=== PATIENT | male | born 1965 | race Hispanic/Latino ===

== ENCOUNTER 2018-02-02 06:00 | Day surgery (SDC) | payer MEDICARE ==
[2018-02-02] MEDS ORDERED: SODIUM CHLORIDE 0.9% 1000ML 1,000 ML IV ONE (06:34)
[2018-02-02] MEDS ORDERED: IOPAMIDOL-370 100 ML VIAL IV ONE (11:30)
[2018-02-02] MEDS ORDERED: IOPAMIDOL-370 75 ML VIAL IV ONE (11:30)
[2018-02-02 12:00] VITALS: BP 176/81
== END 2018-02-02 13:00 | disposition home or self-care (01) ==
LOC: DAH 06:00 → RAH 06:15 → EDSTATUS 08:00 → DAH 13:00 → RAH 13:00
PROVIDERS: ATTEND Internal Medicine Cardiovascular Disease
DX: I70.293 Other atherosclerosis of native arteries of extremities, bilateral legs (principal); I10 Essential (primary) hypertension; E78.4 Other hyperlipidemia; E11.9 Type 2 diabetes mellitus without complications; I51.7 Cardiomegaly
CPT/HCPCS: 75635; J7030; Q9967 ×2

== ENCOUNTER 2019-08-22 16:28 | Inpatient (IN) | payer MEDICARE ==
[~2019-08-22] VITALS: Ht 175.3 cm; Wt 108.0 kg
[2019-08-22 17:18] LABS: BASOPHILS % (AUTO) 0.6 % (0.0-5.0); EOSINOPHILS % (AUTO) 2.7 % (0.0-8.0); HEMATOCRIT 29.7 % (42-54); LYMPHOCYTES % (AUTO) 18.9 % (21.0-51.0); MEAN CORPUSCULAR HEMOGLOBIN 31.5 pg (27.0-33.0); MEAN CORPUSCULAR VOLUME 90.1 fL (79-99); MONOCYTES % (AUTO) 10.4 % (3.0-13.0); NEUTROPHILS % (AUTO) 67.4 % (40.0-77.0); PLATELET COUNT (AUTO) 192 K/uL (130-400); RED CELL DISTRIBUTION WIDTH 13.6 % (11.0-15.5); WHITE BLOOD COUNT (AUTO) 7.1 K/uL (4.8-10.8)
[2019-08-22 17:30] LABS: CREATININE 2.1 mg/dL (0.5-1.5); POTASSIUM 4.5 mmol/L (3.5-5.1)
[2019-08-22 17:35] LABS: ALBUMIN 2.9 g/dL (3.5-5.0); BILIRUBIN,TOTAL 0.3 mg/dL (0.2-1.0)
[2019-08-22 17:38] LABS: B-TYPE NATRIURETIC PEPTIDE 336 pg/mL (0-100)
[2019-08-22 17:51] VITALS: BP 203/99
[2019-08-22] MEDS ORDERED: ROSU40 PO (18:03)
[2019-08-22] MEDS ORDERED: CLIN300C9 PO (18:03)
[2019-08-22] MEDS ORDERED: FURO40TA5 PO (18:03)
[2019-08-22] MEDS ORDERED: METO-391 PO (18:03)
[2019-08-22] MEDS ORDERED: INSREG SQ (18:03)
[2019-08-22] MEDS ORDERED: INSU300I SQ (18:03)
[2019-08-22 19:00] VITALS: BP 150/78
[2019-08-22] MEDS ORDERED: HYDRALAZINE HCL 20 MG/ML VIAL IV PRN (19:00)
[2019-08-22] MEDS ORDERED: LACTULOSE 20 GM/30 ML UDCUP PO PRN (19:15)
[2019-08-22] MEDS ORDERED: IPRATROPIUM/ALBUTEROL SULFATE 3 ML SOLUTION IH PRN (19:15)
[2019-08-22] MEDS ORDERED: ACETAMINOPHEN 325 MG TAB PO PRN ×2 (19:15)
[2019-08-22] MEDS ORDERED: ONDANSETRON HCL 4 MG/2 ML VIAL IV PRN (19:15)
[2019-08-22] MEDS ORDERED: DIPHENHYDRAMINE HCL 25 MG CAPSULE PO PRN (19:45)
[2019-08-22] MEDS ORDERED: GUAIFENESIN-DM 200/20 MG 10 ML PO PRN (19:45)
[2019-08-22] MEDS ORDERED: MAG HYDROX/AL HYDROX/SIMETH ES 30 ML SUSP UDCUP PO PRN (19:45)
[2019-08-22] MEDS ORDERED: SODIUM CHLORIDE 0.9% 10 ML VIAL IVP SCH (19:45)
[2019-08-22 20:25] LABS: INR 1.02 (0.85-1.15); PARTIAL THROMBOPLASTIN TIME 27.1 SEC (26.3-35.5); PROTHROMBIN TIME 10.7 SEC (9.6-11.6)
[2019-08-22] MEDS: SPIRONOLACTONE 25 MG TAB PO SCH (20:30)
[2019-08-22] MEDS: ATORVASTATIN CALCIUM 40 MG TABLET PO SCH (20:30)
[2019-08-22] MEDS: FUROSEMIDE 10 MG/ML 4ML VIAL IVP SCH (20:30)
[2019-08-22] MEDS: METOPROLOL TARTRATE 25 MG TAB PO SCH (20:30)
[2019-08-22] MEDS: INSULIN HUMULIN R 100 UNIT/ML 3ML SQ SCH (21:00)
[2019-08-22 23:00] VITALS: BP 141/64
[2019-08-23 03:00] VITALS: BP 145/77
[2019-08-23 04:01] LABS: BASOPHILS % (AUTO) 0.4 % (0.0-5.0); EOSINOPHILS % (AUTO) 2.4 % (0.0-8.0); HEMATOCRIT 26.1 % (42-54); LYMPHOCYTES % (AUTO) 26.8 % (21.0-51.0); MEAN CORPUSCULAR HEMOGLOBIN 31.3 pg (27.0-33.0); MEAN CORPUSCULAR HGB CONC 35.1 g/dL (32.0-36.0); MEAN CORPUSCULAR VOLUME 89.3 fL (79-99); MONOCYTES % (AUTO) 13.5 % (3.0-13.0); NEUTROPHILS % (AUTO) 56.9 % (40.0-77.0); PLATELET COUNT (AUTO) 177 K/uL (130-400); RED BLOOD CELL COUNT(AUTO) 2.93 MIL/uL (4.50-6.20); RED CELL DISTRIBUTION WIDTH 13.5 % (11.0-15.5); WHITE BLOOD COUNT (AUTO) 6.5 K/uL (4.8-10.8)
[2019-08-23 04:12] LABS: CREATININE 2.2 mg/dL (0.5-1.5)
[2019-08-23] MEDS: INSULIN HUMULIN R 100 UNIT/ML 3ML SQ SCH ×4 (05:58→22:43)
[2019-08-23] MEDS: FUROSEMIDE 10 MG/ML 4ML VIAL IVP SCH ×2 (05:58→12:10)
--- NOTE | 2019-08-23 06:33 | NUR ---
Patient a/ox4. Denies chest pain. SOB with exertion. Cannot lie flat. On RA. 3+ pitting edema to BLE. Educated on fluid restriction.
[2019-08-23 08:00] VITALS: BP 154/72
[2019-08-23] MEDS: FAMOTIDINE 20MG TAB 20 MG TAB PO SCH (08:43)
[2019-08-23] MEDS: SPIRONOLACTONE 25 MG TAB PO SCH ×2 (08:43→20:42)
[2019-08-23] MEDS: METOPROLOL TARTRATE 25 MG TAB PO SCH ×2 (08:43→20:42)
[2019-08-23] MEDS: ENOXAPARIN SODIUM 40 MG/0.4 ML SYRINGE SQ SCH (08:44)
[2019-08-23 11:00] VITALS: BP 163/83
--- NOTE | 2019-08-23 12:59 | NUR ---
DC PLAN PER PATIENT IS INDEPENDENT, LIVES WITH SPOUSE AND SON, NO PROVIDER, HAS CPAP BUT DOESNT USE, AND FEELS SAFE TO RETURN HOME. Addendum: 08/23/19 at 1300 by JESSICA ALCAZAR RN CM Amended: Links added.
[2019-08-23 16:00] VITALS: BP 181/74
[2019-08-23] MEDS: LISINOPRIL 5 MG TABLET PO SCH (17:00)
[2019-08-23] MEDS: FUROSEMIDE 10 MG/ML 4ML VIAL IV SCH ×2 (17:46→23:40)
[2019-08-23 19:00] VITALS: BP 158/88
[2019-08-23] MEDS: ATORVASTATIN CALCIUM 40 MG TABLET PO SCH (20:42)
[2019-08-23 23:00] VITALS: BP 161/79
[2019-08-23] MEDS ORDERED: INSULIN GLARGINE 100 UNITS/ML 10 ML VIAL SQ SCH (23:00)
[2019-08-24 03:00] VITALS: BP 137/66
[2019-08-24 03:59] LABS: HEMATOCRIT 27.5 % (42-54); MEAN CORPUSCULAR HEMOGLOBIN 31.6 pg (27.0-33.0); MEAN CORPUSCULAR HGB CONC 35.5 g/dL (32.0-36.0); MEAN CORPUSCULAR VOLUME 88.9 fL (79-99); PLATELET COUNT (AUTO) 187 K/uL (130-400); RED BLOOD CELL COUNT(AUTO) 3.09 MIL/uL (4.50-6.20); RED CELL DISTRIBUTION WIDTH 13.3 % (11.0-15.5); WHITE BLOOD COUNT (AUTO) 6.1 K/uL (4.8-10.8)
[2019-08-24 04:04] LABS: HEMOGLOBIN A1C 6.3 % (4.0-6.0)
[2019-08-24 04:07] LABS: CREATININE 2.4 mg/dL (0.5-1.5); POTASSIUM 3.8 mmol/L (3.5-5.1)
[2019-08-24 04:10] LABS: B-TYPE NATRIURETIC PEPTIDE 138 pg/mL (0-100)
[2019-08-24] MEDS: INSULIN HUMULIN R 100 UNIT/ML 3ML SQ SCH ×2 (06:22→11:30)
[2019-08-24 07:10] VITALS: BP 171/79
[2019-08-24] MEDS: SPIRONOLACTONE 25 MG TAB PO SCH (08:44)
[2019-08-24] MEDS: METOPROLOL TARTRATE 25 MG TAB PO SCH (08:44)
[2019-08-24] MEDS: FAMOTIDINE 20MG TAB 20 MG TAB PO SCH (08:44)
[2019-08-24] MEDS: FUROSEMIDE 10 MG/ML 4ML VIAL IV SCH (08:44)
[2019-08-24] MEDS: ENOXAPARIN SODIUM 40 MG/0.4 ML SYRINGE SQ SCH (08:45)
[2019-08-24] MEDS: LISINOPRIL 5 MG TABLET PO SCH (08:45)
[2019-08-24 11:30] VITALS: BP 159/85
[2019-08-24] MEDS ORDERED: FURO-152 PO (12:15)
[2019-08-24] MEDS ORDERED: AMLO5TAB9 PO (12:17)
--- NOTE | 2019-08-24 13:45 | NUR ---
DISCHARGE DISCHARGE INSTRUCTIONS GIVEN TO PATIENT. PRESCRIPTIONS SENT ELECTRONICALLY TO PATIENT PREFERRED PHARMACY. IV DISCONTINUED , TELEPAK REMOVED. PATIENT VERBALIZED UNDERSTANDING.
[2019-08-24] MEDS ORDERED: METOPROLOL TARTRATE 50 MG TAB PO SCH (21:00)
[2019-08-25] MEDS ORDERED: FUROSEMIDE 40 MG TABLET PO SCH (09:00)
== END 2019-08-24 13:50 | disposition home or self-care (01) | DRG 291 ==
LOC: EDH 16:28 → EDHIP 16:29 → 2DH 17:29
PROVIDERS: ADMIT Internal Medicine; ATTEND Internal Medicine
DX: I13.0 Hypertensive heart and chronic kidney disease with heart failure and stage 1 through stage 4 chronic kidney disease, or unspecified chronic kidney disease (principal); I50.31 Acute diastolic (congestive) heart failure; E11.22 Type 2 diabetes mellitus with diabetic chronic kidney disease; N18.3 Chronic kidney disease, stage 3 (moderate); E78.5 Hyperlipidemia, unspecified; E66.9 Obesity, unspecified; E83.110 Hereditary hemochromatosis; I34.0 Nonrheumatic mitral (valve) insufficiency; Z91.19 Patient's noncompliance with other medical treatment and regimen; Z83.3 Family history of diabetes mellitus; Z82.49 Family history of ischemic heart disease and other diseases of the circulatory system; Z68.35 Body mass index [BMI] 35.0-35.9, adult
CPT/HCPCS: 36415; 71046; 80048; 80053; 82948; 83036; 83880; 85025; 85027; 85610; 85730; 93005; 93306; 94664; G0378; J0360; J1650; J1815; J1940

== ENCOUNTER → 2023-02-23 | Outpatient (CLI) | payer MEDICARE ==
[~2023-02-23] MED LIST: AMLO-257 PO; FURO-152 PO; FURO40TA5 PO; INSREG SQ; INSU300I SQ; IOHEXOL 350 MG/ML 100ML INFUS..BTL IV ONE; METO-391 PO; METOPROLOL TARTRATE 1 MG/ML 5ML VIAL IV ONE; ROSU40 PO
== END | disposition home or self-care (01) ==
LOC: RAH 08:57
PROVIDERS: ATTEND Internal Medicine Cardiovascular Disease
DX: R07.9 Chest pain, unspecified (principal)
CPT/HCPCS: 75574; J3490 ×3; Q9967 ×2